=== PATIENT | male | born 1990 | race African-American/Black ===

== ENCOUNTER 2018-09-01 02:15 | Emergency (ER) | payer BC, OTHER ==
[~2018-09-01] VITALS: Ht 182.9 cm; Wt 97.8 kg
[2018-09-01] MEDS ORDERED: SODIUM CHLORIDE 0.9% 1,000ML IVBOLUS ONE (02:30)
[2018-09-01 02:57] LABS: BASOPHILS # (AUTO) 0.02 x10^3/uL (0-0.1); BASOPHILS % (AUTO) 0 % (0-1); EOSINOPHILS # (AUTO) 0.02 x10^3/uL (0-0.4); EOSINOPHILS % (AUTO) 0 % (1-7); LYMPHOCYTES # (AUTO) 2.12 x10^3/uL (1-3.4); LYMPHOCYTES % (AUTO) 28 % (22-44); MD NO; MEAN CORPUSCULAR HEMOGLOBIN 30.5 pg (27.5-34.5); MEAN CORPUSCULAR HGB CONC 33.9 g/dL (33.2-36.2); MEAN CORPUSCULAR VOLUME 89.8 fL (81-97); MEAN PLATELET VOLUME 8.7 fL (7.4-10.4); MONOCYTES # (AUTO) 0.41 x10^3/uL (0.2-0.8); MONOCYTES % (AUTO) 6 % (2-9); NEUTROPHILS % (AUTO) 66 % (42-75); PLATELET COUNT 202 x10^3/uL (130-400); RED CELL DISTRIBUTION WIDTH 12.3 % (9.4-14.8)
[2018-09-01 03:03] LABS: ANION GAP 8 mmol/L (5-15); CALCIUM 8.6 mg/dL (8.5-10.1); CHLORIDE 108 mmol/L (98-107)
[2018-09-01 03:04] LABS: ALANINE AMINOTRANSFERASE 39 U/L (12-78); ALBUMIN 4.3 g/dL (3.4-5.0)
[2018-09-01 03:06] LABS: ALKALINE PHOSPHATASE 110 U/L (45-117); BILIRUBIN,TOTAL 1.1 mg/dL (0.2-1.0); TOTAL PROTEIN 8.3 g/dL (6.4-8.2)
[2018-09-01 05:50] VITALS: BP 107/74
== END 2018-09-01 05:52 | disposition home or self-care (01) ==
LOC: ED 04:46
DX: F10.121 Alcohol abuse with intoxication delirium (principal); R11.10 Vomiting, unspecified
CPT/HCPCS: 36415; 80053; 80307; 85025; 96360; 99284; J7030

== ENCOUNTER 2018-09-01 11:51 | Inpatient (IN) | payer BC ==
[~2018-09-01] VITALS: Ht 185.4 cm; Wt 100.5 kg
[2018-09-01] MEDS ORDERED: SODIUM CHLORIDE 0.9% 1,000 ML IV ONE (11:59)
[2018-09-01] MEDS ORDERED: ETOMIDATE 40 MG/20 ML IVPush ONE (12:00)
[2018-09-01] MEDS ORDERED: SUCCINYLCHOLINE 20 MG/ML, 10ML IVPush ONE (12:00)
[2018-09-01] MEDS ORDERED: SODIUM CHLORIDE FLUSH 10ML SYR IVF ONE (12:00)
[2018-09-01] MEDS ORDERED: SODIUM CHLORIDE 0.9% 1,000ML IVBOLUS ONE (12:00)
[2018-09-01] MEDS ORDERED: LORazepam 2 MG/ML, 1ML IVPush ONE ×2 (12:00→12:30)
[2018-09-01] MEDS ORDERED: LORazepam 2 MG/ML, 1ML ONE ×2 (12:11→12:21)
[2018-09-01] MEDS ORDERED: PROPOFOL 100 ML IV PRN ×2 (12:22→14:20)
[2018-09-01] MEDS ORDERED: PLEASE ENTER HEIGHT AND WEIGHT MC SCH (12:30)
[2018-09-01 12:34] LABS: BASOPHILS # (AUTO) 0.03 x10^3/uL (0-0.1); BASOPHILS % (AUTO) 0 % (0-1); EOSINOPHILS % (AUTO) 0 % (1-7); LYMPHOCYTES # (AUTO) 1.59 x10^3/uL (1-3.4); LYMPHOCYTES % (AUTO) 17 % (22-44); MD NO; MEAN CORPUSCULAR HEMOGLOBIN 30.8 pg (27.5-34.5); MEAN CORPUSCULAR HGB CONC 34.2 g/dL (33.2-36.2); MEAN PLATELET VOLUME 8.7 fL (7.4-10.4); MONOCYTES # (AUTO) 0.51 x10^3/uL (0.2-0.8); MONOCYTES % (AUTO) 5 % (2-9); NEUTROPHILS # (AUTO) 7.43 x10^3/uL (1.8-6.8); NEUTROPHILS % (AUTO) 78 % (42-75); PLATELET COUNT 232 x10^3/uL (130-400); RED BLOOD COUNT 5.38 x10^6/uL (4.38-5.82); RED CELL DISTRIBUTION WIDTH 12.4 % (9.4-14.8)
[2018-09-01 12:43] LABS: INTERNATIONAL NORMALIZED RATIO 1.04 (0.93-1.1); PROTHROMBIN TIME 10.7 Seconds (9.6-11.5)
[2018-09-01 12:45] LABS: ALANINE AMINOTRANSFERASE 38 U/L (12-78); ALBUMIN 4.6 g/dL (3.4-5.0); ANION GAP 9 mmol/L (5-15); CALCIUM 8.8 mg/dL (8.5-10.1); CHLORIDE 109 mmol/L (98-107); CREATININE 0.87 mg/dL (0.7-1.3)
[2018-09-01 12:47] LABS: ALKALINE PHOSPHATASE 120 U/L (45-117); BILIRUBIN,TOTAL 1.2 mg/dL (0.2-1.0); TOTAL PROTEIN 8.5 g/dL (6.4-8.2)
[2018-09-01 12:51] LABS: ACETAMINOPHEN < 2 mcg/mL (10-30); SALICYLATE LEVEL < 1.7 mg/dL (2.8-20.0)
[2018-09-01] MEDS ORDERED: SODIUM CHLORIDE FLUSH 10ML SYR IVF PRN (13:00)
[2018-09-01 14:07] LABS: MICROSCOPIC INDICATED
[2018-09-01 14:10] LABS: AMPHETAMINE SCREEN, URINE Negative (Negative); BARBITURATE SCREEN, URINE Negative (Negative); BENZODIAZEPINE SCREEN, URINE Negative (Negative); CANNABINOID SCREEN, URINE Negative (Negative); COCAINE SCREEN, URINE Negative (Negative); METHADONE SCREEN, URINE Negative (Negative); OPIATE SCREEN, URINE Negative (Negative)
[2018-09-01 14:25] LABS: CULTURE INDICATED? NO
[2018-09-01] MEDS ORDERED: DOCUSATE 100 MG CAPSULE PO PRN (14:30)
[2018-09-01] MEDS ORDERED: ONDANSETRON ODT 4 MG PO PRN (14:30)
[2018-09-01] MEDS ORDERED: PHARMACY MAY ADJ FOR RENAL FX MC SCH (14:30)
[2018-09-01] MEDS ORDERED: LIDOCAINE-MPF 1%, 2ML ENDO PRN (14:30)
[2018-09-01] MEDS ORDERED: ENALAPRILAT 1.25 MG/ML, 2ML IVPush PRN (14:30)
[2018-09-01] MEDS ORDERED: POLYETHYLENE GLYCOL 17 GM PACKET PO PRN (14:30)
[2018-09-01] MEDS ORDERED: BISACODYL 10 MG SUPP PR PRN (14:30)
[2018-09-01] MEDS ORDERED: ONDANSETRON 2MG/ML, 2ML IVPush PRN (14:30)
[2018-09-01] MEDS ORDERED: morphine SULFATE 10 MG/ML, 1ML IVPush PRN (14:30)
[2018-09-01] MEDS: SODIUM CHLORIDE 0.9% 1,000 ML IV SCH ×2 (15:02→22:17)
[2018-09-01] MEDS: ENOXAPARIN 40 MG/0.4 ML SQ SCH (15:02)
[2018-09-01 17:45] LABS: ACETAMINOPHEN < 2 mcg/mL (10-30); SALICYLATE LEVEL < 1.9 mg/dL (2.8-20.0)
[2018-09-01] MEDS ORDERED: FAMOTIDINE 20 MG/2 ML IVPush SCH (21:00)
[2018-09-02] MEDS: LORazepam 2 MG/ML, 1ML IVPush PRN ×5 (03:36→22:23)
[2018-09-02 04:00] VITALS: BP 165/99
[2018-09-02 04:25] LABS: O2 FLOW ROOM AIR L/min
[2018-09-02 04:30] LABS: BASOPHILS # (AUTO) 0.02 x10^3/uL (0-0.1); BASOPHILS % (AUTO) 0 % (0-1); EOSINOPHILS % (AUTO) 0 % (1-7); LYMPHOCYTES # (AUTO) 0.92 x10^3/uL (1-3.4); LYMPHOCYTES % (AUTO) 11 % (22-44); MD NO; MEAN CORPUSCULAR HEMOGLOBIN 30.3 pg (27.5-34.5); MEAN CORPUSCULAR HGB CONC 33.9 g/dL (33.2-36.2); MEAN CORPUSCULAR VOLUME 89.4 fL (81-97); MEAN PLATELET VOLUME 8.5 fL (7.4-10.4); MONOCYTES # (AUTO) 0.69 x10^3/uL (0.2-0.8); MONOCYTES % (AUTO) 9 % (2-9); NEUTROPHILS # (AUTO) 6.51 x10^3/uL (1.8-6.8); NEUTROPHILS % (AUTO) 80 % (42-75); PLATELET COUNT 196 x10^3/uL (130-400); RED BLOOD COUNT 4.98 x10^6/uL (4.38-5.82); RED CELL DISTRIBUTION WIDTH 12.1 % (9.4-14.8)
[2018-09-02 04:44] LABS: ALANINE AMINOTRANSFERASE 33 U/L (12-78); ALBUMIN 3.8 g/dL (3.4-5.0); ANION GAP 10 mmol/L (5-15); CALCIUM 8.2 mg/dL (8.5-10.1); CHLORIDE 112 mmol/L (98-107); CREATININE 0.89 mg/dL (0.7-1.3)
[2018-09-02 04:46] LABS: ALKALINE PHOSPHATASE 106 U/L (45-117); BILIRUBIN,TOTAL 2.6 mg/dL (0.2-1.0); TOTAL PROTEIN 7.3 g/dL (6.4-8.2)
[2018-09-02] MEDS: LABETALOL 5MG/ML, 20ML IVPush PRN (05:23)
[2018-09-02] MEDS: SODIUM CHLORIDE 0.9% 1,000 ML IV SCH (06:04)
[2018-09-02] MEDS ORDERED: MAGNESIUM SULFATE PMX 2GM/50ML 50 ML IV ONE (07:30)
[2018-09-02] MEDS ORDERED: POTASSIUM PHOSPHATE 44 MEQ in SODIUM CHLORIDE 0.9% 500 ML IV ONE (07:30)
[2018-09-02] MEDS ORDERED: SODIUM CHLORIDE 0.45% 1,000 ML IV SCH (08:00)
[2018-09-02] MEDS: SENNA/DOCUSATE TABLET PO SCH (10:04)
[2018-09-02] MEDS: ENOXAPARIN 40 MG/0.4 ML SQ SCH (14:20)
[2018-09-03] MEDS: LORazepam 2 MG/ML, 1ML IVPush PRN ×2 (02:37→10:10)
[2018-09-03] MEDS: LABETALOL 5MG/ML, 20ML IVPush PRN (02:49)
[2018-09-03 05:22] LABS: BASOPHILS # (AUTO) 0.02 x10^3/uL (0-0.1); BASOPHILS % (AUTO) 0 % (0-1); EOSINOPHILS # (AUTO) 0.03 x10^3/uL (0-0.4); EOSINOPHILS % (AUTO) 0 % (1-7); LYMPHOCYTES % (AUTO) 12 % (22-44); MD NO; MEAN CORPUSCULAR HEMOGLOBIN 30.4 pg (27.5-34.5); MEAN CORPUSCULAR HGB CONC 34.4 g/dL (33.2-36.2); MEAN CORPUSCULAR VOLUME 88.3 fL (81-97); MEAN PLATELET VOLUME 8.2 fL (7.4-10.4); MONOCYTES # (AUTO) 0.46 x10^3/uL (0.2-0.8); MONOCYTES % (AUTO) 6 % (2-9); NEUTROPHILS # (AUTO) 6.81 x10^3/uL (1.8-6.8); NEUTROPHILS % (AUTO) 82 % (42-75); PLATELET COUNT 233 x10^3/uL (130-400); RED BLOOD COUNT 5.46 x10^6/uL (4.38-5.82)
[2018-09-03 08:00] VITALS: BP 149/109
[2018-09-03 08:41] LABS: ALANINE AMINOTRANSFERASE 43 U/L (12-78); ALBUMIN 4.2 g/dL (3.4-5.0); ANION GAP 9 mmol/L (5-15); CHLORIDE 106 mmol/L (98-107); CREATININE 0.85 mg/dL (0.7-1.3)
[2018-09-03 08:43] LABS: ALKALINE PHOSPHATASE 119 U/L (45-117); BILIRUBIN,TOTAL 2.3 mg/dL (0.2-1.0); TOTAL PROTEIN 8.3 g/dL (6.4-8.2)
[2018-09-03] MEDS: SENNA/DOCUSATE TABLET PO SCH (09:39)
[2018-09-03] MEDS ORDERED: THIA100T67 PO (09:55)
[2018-09-03] MEDS ORDERED: FOLI-17 PO (09:55)
[2018-09-03] MEDS ORDERED: THIAMINE 100MG TABLET PO SCH (10:00)
[2018-09-03] MEDS ORDERED: FOLIC ACID 1 MG TABLET PO SCH (10:00)
[2018-09-03 10:26] VITALS: BP 145/91
[2018-09-03 12:30] VITALS: BP 141/94
[2018-09-03] MEDS: ENOXAPARIN 40 MG/0.4 ML SQ SCH (15:13)
[2018-09-03] MEDS ORDERED: LORazepam 1MG TABLET PO PRN (15:30)
[2018-09-03] MEDS ORDERED: PROPRANOLOL 20 MG TABLET ONE (15:36)
[2018-09-03] MEDS: PROPRANOLOL 10 MG TABLET PO SCH ×2 (15:38→23:30)
[2018-09-03] MEDS ORDERED: ZIPRASIDONE 20 MG INJ IM PRN (17:30)
[2018-09-03] MEDS ORDERED: CHLORDIAZEPOXIDE 25 MG CAPSULE PO PRN (17:30)
[2018-09-03 19:54] VITALS: BP 138/96
[2018-09-03] MEDS ORDERED: ZIPRASIDONE 20MG CAPSULE PO PRN (20:00)
[2018-09-03] MEDS ORDERED: ZIPRASIDONE 20 MG INJ IM ONE ×2 (21:57→22:00)
[2018-09-03 22:19] VITALS: BP 136/88
== END 2018-09-04 08:50 | DRG 917 ==
LOC: ED 12:59 → EDIP 13:00 → ED 13:17 → CCU 14:00 → 2N 09-03 12:25
PROVIDERS: ADMIT Internal Medicine; ATTEND Family Medicine
PROC: 0T9B70Z Drainage of Bladder with Drainage Device, Via Natural or Artificial Opening (ICD-10-PCS; principal; 2018-09-01)
PROC: 5A1935Z Respiratory Ventilation, Less than 24 Consecutive Hours (ICD-10-PCS; 2018-09-01)
PROC: 0BH18EZ Insertion of Endotracheal Airway into Trachea, Via Natural or Artificial Opening Endoscopic (ICD-10-PCS; 2018-09-01)
DX: T43.222A Poisoning by selective serotonin reuptake inhibitors, intentional self-harm, initial encounter (principal); J96.01 Acute respiratory failure with hypoxia; E87.2 Acidosis; Z99.11 Dependence on respirator [ventilator] status; F32.9 Major depressive disorder, single episode, unspecified; F10.129 Alcohol abuse with intoxication, unspecified; I10 Essential (primary) hypertension; T51.0X1A Toxic effect of ethanol, accidental (unintentional), initial encounter; K80.20 Calculus of gallbladder without cholecystitis without obstruction; Z88.8 Allergy status to other drugs, medicaments and biological substances; Z91.5 Personal history of self-harm; Z79.899 Other long term (current) drug therapy; Z79.1 Long term (current) use of non-steroidal anti-inflammatories (NSAID); Z79.2 Long term (current) use of antibiotics; Y92.89 Other specified places as the place of occurrence of the external cause
CPT/HCPCS: 31500; 36415; 36600; 70450; 71045; 76700; 80053; 80307; 80329; 81001; 82140; 82803; 83735; 84100; 84478; 85025; 85610; 85730; 87040; 87070; 87081; 87205; 93005; 94002; 94003; 94150; 96374; G0378; J1650; J2405; J2704; J3486; G0480; J2060; J3475; J7030; J7040; S0028